=== PATIENT | male | born 1950 | race Caucasian/White ===

== ENCOUNTER 2020-02-15 16:44 | Emergency (ER) | payer OTHER ==
--- OUTSIDE RECORDS SUMMARY | 2020-02-15 16:48 | XMS REPORT | Clinical Summary ---
:1950 Author Organization [facility] Address [address] [place] [address] Care Team Providers Name Role Phone Asked, No Pcp Primary Care Provider Unavailable Allergies No Known Allergies Medications Medication Sig Dispensed Refills Start Date End Date Status amlodipine-benazepril Take 1 capsule by 0 Active (LOTREL) 10-20 mg per mouth daily. capsule aspirin (ECOTRIN) 81 Take 81 mg by 0 Active MG enteric coated mouth daily. tablet Active Problems Patient Care Coordination Note Huyen Sexton MD (PCP) (p) [phone] (f) [phone] Problem Noted Date Lung cancer 12/26/2018 Liver mass, right lobe 11/24/2018 Family History Medical History Relation Name Comments Heart disease Father Cancer Mother Relation Name Status Comments Father Mother Social History Tobacco Use Types Packs/Day Years Used Date Former Smoker Cigarettes 2 30 Quit: 2014 Smokeless Tobacco: Never Used Tobacco Cessation: Counseling Given: Yes Alcohol Use Drinks/Week oz/Week Comments No Sex Assigned at Date Recorded Not on file Job Start Date Occupation Industry Not on file Not on file Not on file Travel History Travel Start Travel End No recent travel history available. Last Filed Vital Signs Not on file Plan of Treatment Health Maintenance Due Date Last Done Comments COLONOSCOPY SCREENING 1999 SHINGLES VACCINES (#1) 1999 65+ PNEUMOCOCCAL VACCINE (1 of 2 - PCV13) 2014 INFLUENZA VACCINE 05/07/2020 Results Not on fileafter 02/14/2019 Insurance Payer Benefit Plan / Subscriber ID Effective Dates Phone Addre ss Type Group MEDICARE MEDICARE PART A xxxxxxxxxxx 2014-Present [place], [place] Medicare AND B Advance Directives For more information, please contact: [phone] Type Date Recorded Patient Banana Handler Explanati on Advance Directives, Living Will and Medical Power of Golf Course Laborer
[2020-02-15] MEDS ORDERED: SOD POLYSTYREN SUL 15 GM/60 ML UCUP ONE (19:17)
--- NOTE | 2020-02-15 19:27 | EDPHYS ---
Physician Documentation [facility] Name: Alessandro De León Age: 69 yrs Sex: Male : 1950 Arrival Date: 02/15/2020 Time: 16:47 Bed 6 Private MD: JACOB Physician Ned Hauser HPI: 02/14 18:33 This 69 yrs old Male presents to ER via Ambulatory with complaints of kb Breathing Difficulty. 18:33 The patient has shortness of breath with light activity, and the patient has a history kb of Lung CA. Onset: The symptoms/episode began/occurred just prior to arrival. Duration: The symptoms are intermittent. The patient's shortness of breath is aggravated by exertion, is alleviated by rest. Associated signs and symptoms: The patient has no apparent associated signs or symptoms. Severity of symptoms: At their worst the symptoms were moderate in the emergency department the symptoms have resolved. The patient has experienced similar episodes in the past. The patient has been recently seen by a physician:. Pt states [facility]. He walked over here and they didn't have orders so he had to walk back. He walked back to the hospital lab and they told him he needed to come to the ER because he was short of breath. Pt had blood work done that had been ordered and came here to get checked. States it is normal for him to get short of breath with that much walking. States he feels fine now, he just needed to sit for a minute. States he has a CT scheduled for tomorrow so he doesn't want a CXR now. Will review outpatient labs that were just drawn. . Historical: - Allergies: 16:57 No Known Allergies; ca1 - PMHx: 16:57 Lung Ca; Liver Ca; Hypertension; ca1 - PSHx: 16:57 Lung Surgery; ca1 - Immunization history:: Adult Immunizations up to date, . - Social history:: Smoking status: Patient/guardian denies using tobacco, the patient reports quitting approximately 5 years ago. ROS: 18:33 Constitutional: Negative for fever, chills, and weight loss, Cardiovascular: Negative kb for chest pain, palpitations, and edema, Abdomen/GI: Negative for abdominal pain, nausea, vomiting, diarrhea, and constipation, Back: Negative for injury and pain, MS/Extremity: Negative for injury and deformity, Skin: Negative for injury, rash, and discoloration, Neuro: Negative for headache, weakness, numbness, tingling, and seizure. 18:33 Respiratory: Positive for dyspnea on exertion, Negative for cough, hemoptysis, orthopnea, pleurisy, shortness of breath, sputum production, wheezing. Exam: 18:32 Constitutional: This is a well developed, well nourished patient who is awake, alert, kb and in no acute distress. Head/Face: Normocephalic, atraumatic. Chest/axilla: Normal chest wall appearance and motion. Nontender with no deformity. No lesions are appreciated. Cardiovascular: Regular rate and rhythm with a normal S1 and S2. No gallops, murmurs, or rubs. Normal PMI, no JVD. No pulse deficits. Respiratory: Lungs have equal breath sounds bilaterally, clear to auscultation and percussion. No rales, rhonchi or wheezes noted. No increased work of breathing, no retractions or nasal flaring. Abdomen/GI: Soft, non-tender, with normal bowel sounds. No distension or tympany. No guarding or rebound. No evidence of tenderness throughout. Back: No spinal tenderness. No costovertebral tenderness. Full range of motion. Skin: Warm, dry with normal turgor. Normal color with no rashes, no lesions, and no evidence of cellulitis. MS/ Extremity: Pulses equal, no cyanosis. Neurovascular intact. Full, normal range of motion. Neuro: Awake and alert, GCS 15, oriented to person, place, time, and situation. Cranial nerves II-XII grossly intact. Motor strength 5/5 in all extremities. Sensory grossly intact. Cerebellar exam normal. Normal gait. 18:32 ECG was reviewed by the Attending Physician. Vital Signs: 16:52 BP 116 / 94; Pulse 110; Resp 20 S; Temp 97.6(TE); Pulse Ox 98% on R/A; Weight 50.35 kg ca1 (R); Height 5 ft. 9 in. (175.26 cm) (R); Pain 0/10; 18:14 BP 138 / 88; Pulse 94; Resp 17; Pulse Ox 100% ; bp 19:15 BP 129 / 84; Pulse 97; Resp 18; Pulse Ox 100% on R/A; ea 16:52 Body Mass Index 16.39 (50.35 kg, 175.26 cm) ca1 MDM: 17:07 Patient medically screened. kb 18:33 Data reviewed: vital signs, nurses notes. Data interpreted: Pulse oximetry: on room air kb is 100 %. Interpretation: normal. 18:36 ED course: Outpatient labs reviewed. Potassium 5.4, with normal kidney function. Will kb check EKG and repeat potassium. Pt still has no complaints. . 19:01 Physician consultation: David called at 1855. Voicemail left. kb 19:24 Counseling: I had a detailed discussion with the patient and/or guardian regarding: the kb historical points, exam findings, and any diagnostic results supporting the discharge/admit diagnosis, lab results, the need for outpatient follow up, a family practitioner, to return to the emergency department if symptoms worsen or persist or if there are any questions or concerns that arise at home. ED course: Spoke with Dr Hernandez, pt is not on any medication that would cause hyperkalemia that she is aware of. Discussed pt condition and diagnostics with ERP. Recommended dose of kayexalate now and follow up with PCP. Pt in agreement with plan of care. No pain, shortness of breath or other complaints at this time. Pt will return for any symptoms or concerns. . 02/14 18:12 Order name: Potassium; Complete Time: 18:46 kb 02/14 18:08 Order name: EKG; Complete Time: 18:08 kb 02/14 18:08 Order name: EKG - Nurse/Tech; Complete Time: 18:24 kb EC:32 Rate is 96 beats/min. Rhythm is regular, Normal Sinus Rhythm. QRS [place] is Normal. NC kb interval is normal at 140 msec. QRS interval is normal at 84 msec. QT interval is normal at 338 msec. Administered Medications: 19:14 Drug: Kayexalate 45 grams Route: PO; ea 19:32 Follow up: Response: No adverse reaction ea Disposition: 20:11 Co-signature as Attending Physician, Ned Hauser MD I agree with the assessment and chad plan of care. Disposition: 02/15/20 19:26 Discharged to Home. Impression: Hyperkalemia. - Condition is Stable. - Discharge Instructions: Hyperkalemia, [id number]. - Medication Reconciliation Form, Thank You Letter, Antibiotic Education, Prescription Opioid Use form. - Follow up: Emergency Department; When: As needed; Reason: Worsening of condition. Follow up: Private Physician; When: 2 - 3 days; Reason: Recheck today's complaints, Continuance of care, Re-evaluation by your physician. Signatures: Dispatcher [employer] EDMS Anastacia Saenz, SILVER SOLDERER-C RUSH-Ned Phillips MD MD cha Antunez, Elena RN Tiffanie Isidro ea, RN RN ca1 Corrections: (The following items were deleted from the chart) 18:37 18:32 ECG was reviewed by the Attending Physician. kb kb 19:31 19:26 02/15/2020 19:26 Discharged to Home. Impression: Hyperkalemia. Condition is ea Stable. Forms are Medication Reconciliation Form, Thank You Letter, Antibiotic Education, Prescription Opioid Use. Follow up: Emergency Department; When: As needed; Reason: Worsening of condition. Follow up: Private Physician; When: 2 - 3 days; Reason: Recheck today's complaints, Continuance of care, Re-evaluation by your physician. kb
--- NOTE | 2020-02-15 19:27 | ER ---
Nurse's Notes [facility] Name: Alessandro De León Age: 69 yrs Sex: Male : 1950 Arrival Date: 02/15/2020 Time: 16:47 Bed 6 Private MD: Diagnosis: Hyperkalemia Presentation: 02/14 16:52 Chief complaint: Patient states: "I came here for blood work today for a CT scan ca1 tomorrow, then I got winded." Reports SOB with exertion. Pt reports Lung Ca mets to liver. Pt is on immunotherpay, and has completed chemotherapy about 1.5 yrs ago. Reports cough. Denies fever. Coronavirus screen: Patient reports a cough. Patient reports shortness of breath or difficulty breathing. Patient denies measured and/or subjective temperature greater than 100.4F prior to today's visit. Patient denies travel on a cruise ship or to a country the [facility] currently lists as an affected area. Patient denies contact with known and/or suspected case of COVID-19. Ebola Screen: Patient negative for fever greater than or equal to 101.5 degrees Fahrenheit, and additional compatible Ebola Virus Disease symptoms Patient denies exposure to infectious person. Patient denies travel to an Ebola-affected area in the 21 days before illness onset. No symptoms or risks identified at this time. Initial Sepsis Screen: Does the patient meet any 2 criteria? No. Patient's initial sepsis screen is negative. Does the patient have a suspected source of infection? No. Patient's initial sepsis screen is negative. Risk Assessment: Do you want to hurt yourself or someone else? Patient reports no desire to harm self or others. Onset of symptoms was February 15, 2020. 16:52 Method Of Arrival: Ambulatory ca1 16:52 Acuity: JEF 3 ca1 Triage Assessment: 16:55 General: Appears in no apparent distress. comfortable, Behavior is cooperative, bp appropriate for age, anxious. Pain: Denies pain. EENT: No deficits noted. Neuro: No deficits noted. Cardiovascular: No deficits noted. Respiratory: Reports shortness of breath on exertion Onset: The symptoms/episode began/occurred this morning, the patient has mild shortness of breath. GI: No signs and/or symptoms were reported involving the gastrointestinal system. : No signs and/or symptoms were reported regarding the genitourinary system. Derm: No deficits noted. Musculoskeletal: No deficits noted. Historical: - Allergies: 16:57 No Known Allergies; ca1 - PMHx: 16:57 Lung Ca; Liver Ca; Hypertension; ca1 - PSHx: 16:57 Lung Surgery; ca1 - Immunization history:: Adult Immunizations up to date, . - Social history:: Smoking status: Patient/guardian denies using tobacco, the patient reports quitting approximately 5 years ago. Screenin:00 Abuse screen: Denies threats or abuse. Denies injuries from another. Nutritional bp screening: No deficits noted. Tuberculosis screening: No symptoms or risk factors identified. Fall Risk None identified. Assessment: 17:00 General: SEE TRIAGE NOTE. Cardiovascular: Rhythm is sinus rhythm. Respiratory: Airway bp is patent Respiratory effort is even, unlabored, Breath sounds with wheezes bilaterally. 18:00 Reassessment: PT EVALUATED BY PROVIDER. ORDERS IN PROCESS. VS STABLE ON MONITOR, NO bp DYSPNEA NOTED. 18:45 Reassessment: CRITICAL POTASSIUM 5.7, RELAYED TO PROVIDER. bp 19:15 General: Appears in no apparent distress. Behavior is calm, cooperative, appropriate ea for age. Pain: Denies pain. Neuro: Level of Consciousness is awake, alert, obeys commands, Oriented to person, place, time, situation. Respiratory: Airway is patent Respiratory effort is even, unlabored. Derm: Skin is pink, warm \\T\\ dry. 19:31 Reassessment: Patient and/or family updated on plan of care and expected duration. Pain ea level reassessed. Patient is alert, oriented x 3, equal unlabored respirations, skin warm/dry/pink. Discharge instruction given to patient, verbalized the understanding of instruction. Pt left ED ambulatory tolerating well. Vital Signs: 16:52 BP 116 / 94; Pulse 110; Resp 20 S; Temp 97.6(TE); Pulse Ox 98% on R/A; Weight 50.35 kg ca1 (R); Height 5 ft. 9 in. (175.26 cm) (R); Pain 0/10; 18:14 BP 138 / 88; Pulse 94; Resp 17; Pulse Ox 100% ; bp 19:15 BP 129 / 84; Pulse 97; Resp 18; Pulse Ox 100% on R/A; ea 16:52 Body Mass Index 16.39 (50.35 kg, 175.26 cm) ca1 ED Course: 16:47 Patient arrived in ED. ag5 16:55 Triage completed. ca1 16:57 Arm band placed on right wrist. ca1 17:00 Patient has correct armband on for positive identification. Bed in low position. Call bp light in reach. Side rails up X2. 17:07 Anastacia Saenz FNP-C is [facility]. kb 17:07 Ned Hauser MD is Attending Physician. kb 17:21 Candelario Bhardwaj, RN is Primary Nurse. bp 18:30 EKG done, by ED staff, reviewed by Anastacia GONZALEZ. [facility] 19:26 Primary Nurse role handed off by Candelario Bhardwaj, ALEM ea 19:26 Leslye Carr, ALEM is Primary Nurse. ea 19:30 No provider procedures requiring assistance completed. Patient did not have IV access ea during this emergency room visit. Administered Medications: 19:14 Drug: Kayexalate 45 grams Route: PO; ea 19:32 Follow up: Response: No adverse reaction ea Outcome: 19:26 Discharge ordered by . kb 19:30 Discharged to home ambulatory. ea 19:30 Condition: stable 19:30 Discharge instructions given to patient, Instructed on discharge instructions, follow up and referral plans. Demonstrated understanding of instructions, follow-up care. 19:31 Patient left the ED. ea Signatures: Anastacia Saenz FNP-C FNP-Ckb Herrera, Deanna [facility] Leslye Carr, RN Candelario Bruner ea, Tiffanie Ellis RN, RN RN ca1 [place], Ajare ag5
[2020-02-15 20:03] VITALS: TEMP 97.6
[2020-02-15 20:05] VITALS: O2SAT 100
[2020-02-15 20:06] VITALS: BP 129/84
--- NOTE | 2020-02-16 07:20 | EKG ---
Test Date: 2020-02-15 Test Time: 18:30:14 Nurse Educator: FAWN MEASUREMENT RESULTS: Intervals: Rate: 96 IN: 140 QRSD: 84 QT: 338 QTc: 427 Anna: P: 38 IN: 140 QRS: 58 T: 34 INTERPRETIVE STATEMENTS: Normal sinus rhythm Normal ECG No previous ECG available for comparison Electronically Signed On 02-16-20 07:19:47 CDT by Samuel Noriega
== END 2020-02-15 19:31 | disposition home or self-care (01) ==
LOC: ER 16:44
DX: E87.5 Hyperkalemia (principal); C34.90 Malignant neoplasm of unspecified part of unspecified bronchus or lung; C22.0 Liver cell carcinoma; I10 Essential (primary) hypertension; Z87.891 Personal history of nicotine dependence
CPT/HCPCS: 36415; 84132; 93005; 99284